=== PATIENT | female | born 1950 | race Caucasian/White ===

== ENCOUNTER → 2023-07-21 07:48 | Outpatient (REF) | payer MEDICARE, OTHER, SELFPAY | LOC: RAD 07:48 | PROVIDERS: ATTENDING PHYSICIAN Family Medicine | DX: Z87.891 Personal history of nicotine dependence (principal) | CPT/HCPCS: 71271 ==

== ENCOUNTER → 2023-12-09 10:54 | Outpatient (REF) | payer MEDICARE, OTHER, SELFPAY | LOC: WDC 10:54 | PROVIDERS: ATTENDING PHYSICIAN Family Medicine | DX: Z12.31 Encounter for screening mammogram for malignant neoplasm of breast (principal) | CPT/HCPCS: 77063; 77067 ==

== ENCOUNTER → 2023-12-19 11:52 | Outpatient (REF) | payer MEDICARE, OTHER, SELFPAY | LOC: RAD 11:52 | PROVIDERS: ATTENDING PHYSICIAN Nurse Practitioner Family; FAMILY PHYSICIAN Family Medicine | DX: R20.0 Anesthesia of skin (principal) | CPT/HCPCS: 73564 ==

== ENCOUNTER → 2024-01-05 15:44 | Outpatient (REF) | payer MEDICARE, OTHER, SELFPAY | LOC: RAD 15:44 | PROVIDERS: ATTENDING PHYSICIAN Family Medicine | DX: M79.89 Other specified soft tissue disorders (principal); M79.604 Pain in right leg | CPT/HCPCS: 93971 ==

== ENCOUNTER → 2024-01-09 07:30 | Outpatient (REF) | payer MEDICARE, OTHER, SELFPAY | LOC: EMG 07:30 | PROVIDERS: ATTENDING PHYSICIAN Family Medicine | DX: R20.2 Paresthesia of skin (principal); R20.0 Anesthesia of skin | CPT/HCPCS: 95886; 95909 ==

== ENCOUNTER → 2024-01-10 10:24 | Outpatient (REF) | payer MEDICARE, OTHER, SELFPAY | LOC: RAD 10:24 | PROVIDERS: ATTENDING PHYSICIAN Family Medicine | DX: M79.89 Other specified soft tissue disorders (principal) | CPT/HCPCS: 73700 ==

== ENCOUNTER → 2024-04-14 14:26 | Outpatient (REF) | payer MEDICARE, OTHER, SELFPAY | LOC: RAD 14:26 | PROVIDERS: ATTENDING PHYSICIAN Family Medicine | DX: I87.2 Venous insufficiency (chronic) (peripheral) (principal) | CPT/HCPCS: 93970 ==

== ENCOUNTER → 2024-06-25 15:39 | Outpatient (REF) | payer MEDICARE, OTHER, SELFPAY | LOC: RAD 15:39 | PROVIDERS: ATTENDING PHYSICIAN Emergency Medicine | DX: J10.1 Influenza due to other identified influenza virus with other respiratory manifestations (principal); R05.1 Acute cough | CPT/HCPCS: 71046 ==

== ENCOUNTER 2024-07-04 19:22 | Emergency (ER) | payer MEDICARE, OTHER, SELFPAY ==
--- NOTE | 2024-07-04 22:05 | ED.GENMED ---
History of Present Illness
General
Chief Complaint: Fall
Time Seen by Provider: 07/04/24 21:55
History of Present Illness
History of Present Illness:
Patient is a 73-year-old woman with history of hypertension, hyperlipidemia presenting to the emergency department after a fall. Patient states that she tripped where the grass meets the driveway and fell on her right side. She did not hit her
head. She did not lose consciousness. She is not on a blood thinner. She landed on her right shoulder. She is complaining of right shoulder and right rib pain. Initially she told triage nurse that she was having knee pain however denied that to
me. No numbness tingling. She is having significant weakness secondary to the pain in the right arm. No headache. No nausea or vomiting. No abdominal pain. No back pain.
Past History
Past History
ED Past Medical History: HTN and Hypercholesterolemia
ED Past Surgical History: Cholecystectomy, Gynecological and Other
Social History
Tobacco: Smoker
Living: with family
Phy Exam
Physical Exam
Physical Exam:
GENERAL: no acute distress
HEENT: atraumatic, extraocular muscles intact, no signs of entrapment, dentition intact, no other obvious trauma
NECK: no midline tenderness, normal range of motion
BACK: no midline tenderness, no other obvious trauma
CHEST: Tenderness over the right anterior ribs 4-6, no bruising
LUNGS: clear to auscultation bilaterally
CARDIOVASCULAR: regular rate and rhythm
ABDOMEN: soft, non-tender, no masses, no other obvious trauma
PELVIS: stable, no obvious injury
EXTREMITIES: Right upper extremity with tenderness over the right upper shoulder otherwise moving all extremities, distal pulses intact, no other obvious trauma, no tenderness over the right wrist
NEUROLOGIC: awake, alert x 3, no focal deficits
Course
Orders/Labs/Results
Orders:
Orders
07/04/24 21:02
Humerus, Right 2 Views [CR Humerus - Right Min 2 View*] Urgent
Comment:
Reason For Exam: fall
Wrist, Right 3 Views [CR Wrist - Right Min 3 Views] Urgent
Comment:
Reason For Exam: wrist
07/04/24 21:56
CT Chest W/o Iv Contrast Urgent
Comment:
Reason For Exam: rib pain
07/04/24 22:03
Acetaminophen [Tylenol] 1,000 mg PO NOW STA
07/05/24 00:10
Oxycodone [Roxicodone] 5 mg PO NOW STA
07/05/24 00:28
Sling Right-Treatment ONCE
Vital Signs
Initial and Last Documented VS:
Initial Vital Signs
Temp Pulse Resp Pulse Ox
98.2 F 54 18 100
07/04/24 19:28 07/04/24 19:28 07/04/24 19:28 07/04/24 19:28
Last Documented Vital Signs
Temp Pulse Resp BP Pulse Ox
98.2 F 58 16 169/99 100
07/04/24 19:28 07/04/24 22:11 07/04/24 22:11 07/04/24 22:11 07/04/24 22:11
MDM/Problems Addressed
Differential Diagnosis Includes:
Patient is a 73-year-old woman presenting to the emergency department after a fall. Patient's vital signs are unremarkable and exam does show tenderness over her right shoulder as well as right anterior ribs. Concern for shoulder fracture versus
possible dislocation as well as rib fractures. Will obtain CT scan of her chest. Will obtain x-rays of her shoulder and her wrist
*Critical Care Note
Total Time (30-74mins, 75-104mins- exclusive of procedures): Not Applicable
Update Note
Update Note:
X-ray of the shoulder per my interpretation with neck fracture. Will place patient in sling. Rest per my interpretation with no acute fracture. On reevaluation patient's wrist remains nontender. CT scan per the preliminary read is negative for
any rib fractures. Patient's pain is controlled. Will discharge at this time with a short course of oxycodone as needed.
ED Attending Note
-
Portions of this chart may have been created with voice recognition software.� Occasional wrong word or��sound alike� substitutions may have occurred due to the inherent limitations of voice recognition software.
Discharge Plan
Departure
Patient Disposition: Home (Routine Discharge)
Date of Disposition: 07/05/24
Time of Disposition: 00:28
Patient with high blood pressure during this ER visit?: Yes
Discharge Problem:
Fracture of neck of humerus
Instructions: How to Use a Shoulder Sling ED
Prescriptions:
New
oxycodone 5 mg tablet
5 mg PO Q8H PRN (Reason: Pain) Qty: 10 0RF
No Action
'Cholesterol Pill'
PO DAILY
Patient Comments:
pt. does not know the name or dose.
'Water Pill'
PO DAILY
Patient Comments:
pt. does not know the name or dose.
Multiple Vitamins
PO DAILY
POTASSIUM
PO . DIRECTED
Patient Comments:
pt. does not know the dose.
Wellbutrin
PO BID
Referrals:
Francisco Pathak MD [Active] - Call in 1-3 days for appt
Duane Bailey DO [Family Provider] -
Interventions
Interventions:
*Risk Screen - Suicide Last Done: 07/04/24 22:11
*General Assessment Last Done: 07/04/24 22:11
*Neglect/Abuse Screening Last Done: 07/04/24 22:11
ED- Fall Risk Assessment Last Done: 07/04/24 22:30
*ED COVID-19 Vaccine History Last Done: 07/04/24 22:11
ED-Musculoskeletal Assessment Last Done: 07/04/24 22:30
ED- Neurological Assessment Last Done: 07/04/24 22:30
ED-Skin Assessment Last Done: 07/04/24 22:30
Discharge Date and Time
Print Language: BENGALI
[2024-07-04] MEDS: TYLENOL 1000 MG PO (22:08)
[2024-07-04 22:11] VITALS: BP 169/99
[2024-07-05] MEDS: ROXICODONE 5 MG PO (01:16)
== END 2024-07-05 01:17 | disposition home or self-care (01) ==
LOC: EMR 19:22
PROVIDERS: EMERGENCY PHYSICIAN Student in an Organized Health Care Education/Training Program; FAMILY PHYSICIAN Family Medicine
DX: S42.201A Unspecified fracture of upper end of right humerus, initial encounter for closed fracture (principal); W19.XXXA Unspecified fall, initial encounter; I10 Essential (primary) hypertension; E78.00 Pure hypercholesterolemia, unspecified; F17.200 Nicotine dependence, unspecified, uncomplicated; Z90.49 Acquired absence of other specified parts of digestive tract
CPT/HCPCS: 99284; 71250; 73060; 73110

== ENCOUNTER → 2024-09-22 09:56 | Outpatient (REF) | payer MEDICARE, OTHER, SELFPAY | LOC: HWRAD 09:56 | PROVIDERS: ATTENDING PHYSICIAN Family Medicine | DX: Z87.891 Personal history of nicotine dependence (principal) | CPT/HCPCS: 71271 ==

== ENCOUNTER → 2024-12-09 14:43 | Outpatient (REF) | payer MEDICARE, OTHER, SELFPAY | LOC: WDC 14:43 | PROVIDERS: ATTENDING PHYSICIAN Family Medicine | DX: Z12.31 Encounter for screening mammogram for malignant neoplasm of breast (principal) | CPT/HCPCS: 77063; 77067 ==